=== PATIENT | female | born 1935 | race Caucasian/White ===

== ENCOUNTER → 2021-01-12 | Outpatient (CLI) | payer MEDICARE ==
[~2021-01-12] MED LIST: ACHD5005 PO; SIMV20TA3 PO
--- NOTE | 2021-01-12 15:00 | Diagnostic Imaging Report ---
INDICATION: Lower back pain. History of previous sacral fusion. COMPARISON: None FINDINGS: Frontal and lateral radiographic views of the lumbar spine were obtained. Static alignment of the lumbar spine is preserved. There is no significant magi- or retrolisthesis. There is no evidence of jumped facets. Vertebral body heights are maintained as well. There is no evidence of acute fracture. Mild multilevel degenerative changes are noted. Note is also made of previous cervical fusion of the SI joints. No unexpected radiopaque foreign bodies are seen. IMPRESSION: 1. No acute fracture or dislocation in the lumbar spine. 2. Mild multilevel degenerative changes. Dictated by: Dictated on workstation # [id number]
== END ==
LOC: RAD FS 14:24
PROVIDERS: ATTEND Nurse Practitioner Family
DX: M47.816 Spondylosis without myelopathy or radiculopathy, lumbar region (principal); Z98.890 Other specified postprocedural states; Z87.828 Personal history of other (healed) physical injury and trauma; Z96.7 Presence of other bone and tendon implants
CPT/HCPCS: 72100